=== PATIENT | female | born 1995 | race Caucasian/White ===

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

== ENCOUNTER 2017-10-15 10:01 | Emergency (ER) | payer BC ==
[2017-10-15 10:21] VITALS: BP 120/53
--- NOTE | 2017-10-15 11:37 | UC ---
UC General HPI - HPI Summary HPI Summary: SORE THROAT AND HEADACHE SINCE YESTERDAY - History of Current Complaint Chief Complaint: UCGeneralIllness Stated Complaint: SORE THROAT Time Seen by Provider: 10/15/17 11:30 Hx Obtained From: Patient Hx Last Menstrual Period: ~10/04/17 Onset/Duration: Gradual Onset Timing: Constant Pain Intensity: 7 Aggravating: SWALLOW Alleviating: NOTHING Associated Signs & Symptoms: Positive: Headache. Negative: Fever - Allergy/Home Medications Allergies/Adverse Reactions: Allergies Allergy/AdvReac Type Severity Reaction Status Date / Time latex Allergy Hives Verified 10/15/17 10:19 Penicillins Allergy Hives Verified 10/15/17 10:19 Home Medications: Home Medications Ibuprofen TAB* [Advil TAB*] 800 mg PO Q8H PRN 10/15/17 [History Confirmed ] PMH/Surg Hx/FS Hx/Imm Hx Previously Healthy: Yes - Surgical History Surgical History: Yes Surgery Procedure, Year, and Place: 2016 SX REPAIR LEFT FOOT/ANKLE HARDWARE - Family History Known Family History: Negative: Cardiac Disease, Respiratory Disease - Social History Occupation: Employed Part-time, Student Alcohol Use: None Substance Use Type: None Smoking Status (MU): Never Smoked Tobacco - Immunization History Hx Tetanus, Diphtheria Vaccination: Yes Vaccination Up to Date: Yes Review of Systems Constitutional: Negative Skin: Negative Eyes: Negative ENT: Sore Throat Respiratory: Negative Cardiovascular: Negative Gastrointestinal: Negative Genitourinary: Negative Motor: Negative Neurovascular: Negative Musculoskeletal: Negative Neurological: Headache Psychological: Negative Is Patient Immunocompromised?: No All Other Systems Reviewed And Are Negative: Yes Physical Exam Triage Information Reviewed: Yes Appearance: Well-Appearing Vital Signs: Initial Vital Signs Temp 99.6 F 10/15/17 10:17 Pulse 114 10/15/17 10:17 Resp 15 10/15/17 10:17 BP 120/53 10/15/17 10:17 Pulse Ox 98 10/15/17 10:17 Vital Signs Reviewed: Yes Eyes: Positive: Conjunctiva Inflamed ENT: Positive: Pharyngeal erythema, TMs normal, Uvula midline. Negative: Nasal congestion, Nasal drainage, Trismus, Muffled voice, Hoarse voice Neck: Positive: Supple, Nontender, Enlarged Nodes @ - pERITONSILAR Respiratory: Positive: Lungs clear, Normal breath sounds Cardiovascular: Positive: RRR, No Murmur, Other: - No tachycardia on exam Abdomen Description: Positive: Nontender, No Organomegaly, Soft Bowel Sounds: Positive: Present Musculoskeletal: Positive: ROM Intact Neurological: Positive: Alert Psychological: Positive: Age Appropriate Behavior Skin Exam: Normal Diagnostics - Laboratory Diagnostic Studies Completed/Ordered: rapid strep is + Course/Dx - Course Course Of Treatment: + rapid strep, non toxic, no concern for peritonsilar abscess. - Differential Dx - Multi-Symptom Provider Diagnoses: Strep throat Discharge - Sign-Out/Discharge Documenting (check all that apply): Patient Departure All imaging exams completed and their final reports reviewed: No Studies - Discharge Plan Condition: Stable Disposition: HOME Prescriptions: Azithromycin TAB* [Zithromax TAB (Z-RONNY) 250 mg #6 tabs] 500 mg PO DAILY 5 Days #10 tab Patient Education Materials: Strep Throat (DC) Forms: *Work Release Referrals: Meenakshi Ayala MD [Primary Care Provider] - 7 Days - Billing Disposition and Condition Condition: STABLE Disposition: Home
== END 2017-10-15 11:42 | disposition home or self-care (01) ==
LOC: UCCORT 10:01
DX: J02.0 Streptococcal pharyngitis (principal); Z88.0 Allergy status to penicillin
CPT/HCPCS: 87651; 99212; G0463

== ENCOUNTER 2018-02-21 08:41 | Emergency (ER) | payer BC ==
--- OUTSIDE RECORDS SUMMARY | 2018-02-21 08:53 | XMS REPORT | Continuity of Care Document ---
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 Payers Type Date Identification Numbers Payment Provider Subscriber Policy Number: [id number] [facility] PayID: [id number] [address] [address] [place] [address] Advance Directives Description No Information Available Problems Description No Information Family History Date Family Member(s) Problem(s) Comments General Hypertension Father Hypertension Mother Good Health : (age 47 Years) Paternal Grandfather due to Cancer, Liver Social History Type Date Description Comments Sex Unknown Education Highest level completed, Adolescent education Associates Degree from [employer] Currently working on at 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 Diet Healthy, Well Balanced ETOH Use Denies alcohol use Tobacco Use Start: Unknown Patient has never smoked Smoking Status Reviewed: 09/03/17 Patient has never smoked Legal Involvement Father is her legal biologic mother has no guardian legal rights. Allergies, Adverse Reactions, Alerts Date Description Reaction Status Severity Comments 08/20/2014 Penicillins Active Hives, SOB 10/21/2017 Latex Hives and itching Active Moderate Medications Medication Date Status Form Strength Qnty SIG Indications Ordering Provider Escitalopram 02/18/ Active Tablets 10mg 30tabs 1 by mouth R14.0 Kandice Ayala 2018 every day MD Meenakshi Ibuprofen 00/00/ Active Tablets 400mg 1 tab by Unknown 0000 mouth every 8 hour as needed pain or fever No Active 02/18/ Hx Unknown Medications 2017 - 2017 No Active 10/21/ Hx Unknown Medications 2017 - 2017 Cephalexin 10/21/ Hx Tablets 500mg 40tabs 1 by mouth Jamie 2018 - four times MD Meenakshi 02/17/ a day x 10 2017 days Dicyclomine HCL 09/03/ Hx Capsules 10mg 90caps by mouth R14.0 Jamie 2017 - three MD Meenakshi 09/10/ times a 2017 day as needed bloating Escitalopram 12/10/ Hx Tablets 20mg 30tabs 1 by mouth F41.0 Kandice Ayala 2016 - every day MD Meenakshi 2017 Escitalopram 03/12/ Hx Tablets 10mg 30tabs 1 by mouth F41.0 Kandice Ayala 2016 - every day MD Meenakshi 2016 Iron 08/20/ Hx Tablets 325(65Fe) one by Jamie 2014 - mg mouTH qod MD Meenakshi 2016 Medications Administered in Office Medication Date Status Form Strength Qnty SIG Indications Ordering Provider PPD Administered Injection Schedule, 8 Nurses Immunizations CPT Code Status Date Vaccine Reaction Lot # [id number] Given 10/07/2017 Tdap (Adacel) Ages 7 And Above [id number] Only 29786 Given 03/12/2016 Meningococcal B(Bexsero)protn Pt tolerated well [id number] otrMembran Vesicle Vccn 2 [place] [address] Given 08/12/2015 Menactra/Menveo Meningococcal [id number] Vaccine 26387 Given 08/12/2015 Meningococcal B(Bexsero)protn [id number] otrMembran Vesicle Vccn 2 [place] sche 175[address] Given 10/13/2013 HPV Vaccine (Gardasil) 3 Dose Schedule 94947 Given 03/15/2013 HPV Vaccine (Gardasil) 3 Dose Schedule 34344 Given 04/18/2012 HPV Vaccine (Gardasil) 3 Dose Schedule 56497 Given 10/17/2009 Menactra/Menveo Meningococcal Vaccine 76810 Given 10/17/2008 Hepatitis A, Ped/Adolescent 2 Dose Schedule 13217 Given 10/13/2007 Tdap (Adacel) Ages 7 And Above Only 92281 Given 10/05/2006 Hepatitis A, Ped/Adolescent 2 Dose Schedule 14952 Given 10/13/2002 MMR Virus Immunization U-Polio Given 10/13/2002 Polio (Non Billable) Unspecified U-Polio Given 10/13/2002 Polio (Non Billable) Unspecified U-DTaP Given 10/13/2002 DTaP (Non Billable) Unspecified [id number] U-Pneum Given 10/31/1999 Pneumococcal (Non Billable) Unspecified U-Pneum Given 09/11/1999 Pneumococcal (Non Billable) Unspecified U-Pneum Given 06/25/1999 Pneumococcal (Non Billable) Unspecified U-HIB Given 03/07/1999 Hib (Non Billable) Unspecified U-Polio Given 02/25/1999 Polio (Non Billable) Unspecified U-DTaP Given 02/25/1999 DTaP (Non Billable) Unspecified [id number] 03701 Given 02/25/1999 Hepatitis B Vac Ped/Adolescent 3 Dose Schedule U-DTaP Given 02/12/1999 DTaP (Non Billable) Unspecified [id number] 68463 Given 11/11/1998 MMR Virus Immunization U-Polio Given 02/09/1998 Polio (Non Billable) Unspecified U-HIB Given 02/09/1998 Hib (Non Billable) Unspecified U-DTaP Given 02/09/1998 DTaP (Non Billable) Unspecified [id number] 85058 Given 02/07/1998 Hepatitis B Vac Ped/Adolescent 3 Dose Schedule U-Polio Given 1997 Polio (Non Billable) Unspecified U-HIB Given 1997 Hib (Non Billable) Unspecified U-DTaP Given 1997 DTaP (Non Billable) Unspecified [id number] 12793 Given 1997 Hepatitis B Vac Ped/Adolescent 3 Dose Schedule Q2039 Refused 02/18/2018 Flu Vaccine NOS Q2039 Refused 09/03/2017 Flu Vaccine NOS Vital Signs Date Vital Result Comment 02/18/2018 2:50pm Weight 125.00 lb Heart Rate 68 /min BP Systolic 114 mmHg BP Diastolic 66 mmHg Respiratory Rate 16 /min Height 62.5 inches 5'2.50" O2 % BldC Oximetry 98 % Ra BMI (Body Mass Index) 22.5 kg/m2 10/21/2017 10:54am Body Temperature 98.4 F Weight 123.00 lb Weight Percentile 40th Heart Rate 88 /min BP Systolic 118 mmHg BP Diastolic 62 mmHg Respiratory Rate 18 /min O2 % BldC Oximetry 100 % 09/03/2017 1:54pm Weight 121.00 lb Weight Percentile 36th Heart Rate 76 /min BP Systolic 124 mmHg BP Diastolic 60 mmHg Respiratory Rate 18 /min Height 62.5 inches 5'2.50"09/03/17 Height Percentile 24 % BMI (Body Mass Index) 21.8 kg/m2 Body Mass Index Percentile 51 % 01/12/2017 8:47am Weight 130.00 lb Weight Percentile 56th Heart Rate 72 /min BP Systolic 110 mmHg BP Diastolic 70 mmHg Respiratory Rate 18 /min Height 62.5 inches 5'2.50"03/12/16 Height Percentile 24 % BMI (Body Mass Index) 23.4 kg/m2 Body Mass Index Percentile 69 % 2016 8:50am Weight 130.00 lb Weight Percentile 56th Heart Rate 72 /min BP Systolic 108 mmHg BP Diastolic 62 mmHg Respiratory Rate 18 /min Height 62.5 inches 5'2.50"03/12/16 Height Percentile 24 % BMI (Body Mass Index) 23.4 kg/m2 Body Mass Index Percentile 69 % 07/06/2016 2:47pm Weight 129.00 lb Weight Percentile 57th Heart Rate 68 /min BP Systolic 128 mmHg BP Diastolic 70 mmHg Respiratory Rate 18 /min Height 62.5 inches 5'2.50"03/12/16 Height Percentile 25 % BMI (Body Mass Index) 23.2 kg/m2 Body Mass Index Percentile 69 % 03/12/2016 11:31am Weight 130.00 lb Weight Percentile 60th Heart Rate 76 /min BP Systolic 102 mmHg BP Diastolic 70 mmHg Respiratory Rate 18 /min Height 62.5 inches 5'2.50"03/12/16 Height Percentile 25 % BMI (Body Mass Index) 23.4 kg/m2 Body Mass Index Percentile 71 % 08/12/2015 8:19am Weight 123.00 lb Weight Percentile 49th Heart Rate 68 /min BP Systolic 110 mmHg BP Diastolic 64 mmHg Respiratory Rate 18 /min Height 62.5 inches 5'2.50" Height Percentile 25 % BMI (Body Mass Index) 22.1 kg/m2 Body Mass Index Percentile 61 % 08/20/2014 3:42pm Weight 121.00 lb Weight Percentile 50th Heart Rate 76 /min BP Systolic 112 mmHg BP Diastolic 62 mmHg Respiratory Rate 16 /min Height 63 inches 5'3" Height Percentile 33 % 08/20/14 BMI (Body Mass Index) 21.4 kg/m2 Body Mass Index Percentile 58 % Results Test Date Facility Test Result H/L Range Note GC/Chlamydia By 09/03/2017 [facility] Chlamydia by Dna NEGATIVE Negative Dna Probe Probe GC by Dna Probe NEGATIVE Negative Laboratory test 06/24/2017 [facility] Urine HCG NEGATIVE (Neg) finding CMP, Comp Metabolic 03/12/2016 [facility] Glucose 86 mg/ dL N 74-106 1 Panel (315)- - BUN 13 mg/dL N 7-18 Creatinine 0.7 mg/dL N 0.6-1.3 Glom Filtration Rate, Estimate >60 mL/min N >60 If >60 mL/min N >60 2 BUN/Creat 18.5 ratio N Sodium 142 mmol/L N 136-145 Potassium 4.0 mmol/L N 3.5-5.1 Chloride 106 mmol/L N 98-107 Carbon Dioxide 29 mmol/L N 21-32 Anion Gap 7 mEq/L Low 8-16 Calcium 8.8 mg/dL N 8.5-10.1 Total Protein 7.9 g/dL N 6.4-8.2 Albumin 4.0 g/dL N 3.4-5.0 Globulin 3.9 g/dL N 1.9-4.3 Alb/Glob 1.0 ratio N Bilirubin,Total 0.5 mg/dL N 0.2-1.0 Sgot/Ast 18 U/L N 15-37 SGPT/Alt 24 U/L N 12-78 Alkaline Phosphatase 98 U/L N 45-117 Laboratory test 03/12/2016 [facility] Thyroid Stim 0.74 uIU/mL N 0.30-4.20 finding (315)- - Hormone CBC With Auto 03/12/2016 [facility] White Blood 5.6 K/uL N 3.1-10.7 Diff (315)- - Count Red Blood Count 4.92 M/uL N 3.90-5.40 Hemoglobin 13.5 gm/dL N 11.6-15.8 Hematocrit 40.1 % N 36.0-46.1 Mean Cell Volume 81.5 fl N 80.9-99.0 Mean Corpuscular HGB 27.4 pg N 25.9-32.7 Mean Corpuscular HGB Conc 33.7 g/dL N 30.8-34.3 Platelet Count 262 K/uL N 155-360 Red Cell Distri Width SD 39.8 fl N 3-47 Red Cell Distri Width %CV 13.7 % N 11.7-14.4 Mean Platelet Volume 10.3 fL N 8.9-12.4 Neut% 51.3 % N 28.0-68.0 Lymph % 33.9 % N 20.0-42.0 [place] % 8.8 % N 4.3-13.2 Eo% 5.8 % N 0.0-6.6 Bas% 0.2 % N 0.0-1.1 Neut# 2.85 K/uL N 1.8-7.0 Lymph # 1.88 K/uL N 1.0-4.0 [place] # 0.49 K/uL N 0.3-0.9 Eos # 0.32 K/uL N 0.0-0.5 Baso # 0.01 K/uL N 0.0-0.1 1 F41.0 2 Note: Persistent reduction for 3 months or more in an eGFR <60 mL/min/1.73 m2 defines CKD. Patients with eGFR values >/=60 mL/min/1.73 m2 may also have CKD if evidence of persistent proteinuria is present. The original MDRD equation for estimated GFR is not valid for patients less than 18 years of age. Additional information may be found at www.kdo[facility].org. Procedures Date Code Description Status 10/21/2017 46584 Measure Blood Oxygen Level Single Determination Completed 09/03/2017 14269 Visual Screening Test Completed 09/03/2017 50745 Brief Emotional/Behav Assessment W/ Scoring Doc Per Completed Standard Inst 09/03/2017 14793 Screening Hearing Test Completed 08/09/2015 70036 Visual Screening Test Completed 08/09/2015 61157 Screening Hearing Test Completed Encounters Type Date Location Provider Dx Diagnosis Office Visit 10/21/2017 [facility] Meenakshi Ayala MD J02.0 Streptococcal 10:30a pharyngitis Office Visit 10/07/2017 [facility] Schedule, Nurses Z23 Encounter for 3:30p immunization Z11.1 Encounter for screening for respiratory tuberculosis Office Visit 09/03/2017 2:00p [facility] Meenakshi Ayala MD Z00.00 Encntr for general adult medical exam w/o abnormal findings R14.0 Abdominal distension (gaseous) Z11.3 Encntr screen for infections w sexl mode of transmiss Z13.89 Encounter for screening for other disorder Office Visit 01/12/2017 8:45a [facility] Meenakshi Ayala MD F41.0 Panic disorder [episodic paroxysmal anxiety] J20.9 Acute bronchitis, unspecified Office Visit 2016 8:45a [facility] Meenakshi Ayala MD F41.0 Panic disorder [episodic paroxysmal anxiety] Office Visit 07/06/2016 2:30p [facility] Meenakshi Ayala MD F41.0 Panic disorder without agoraphobia Office Visit 03/12/2016 11:15a [facility] Meenakshi Ayala MD Z23 Encounter for immunization F41.0 Panic disorder without agoraphobia Office Visit 08/12/2015 8:15a [facility] Meenakshi Ayala MD Z00.129 Encntr for routine child health exam w/o abnormal findings 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 however, it appears that her symptoms worsened after stopping escitalopram. will check labs to evaluate this and will restart escitalopram to see if this helps .Follow up:labs today. 1 month follow-up escitalopram bcxmbI96.0 Panic disorder [episodic paroxysmal anxiety]New Labs:TSH, Ordered: Comments:weaned off escitalopram and doing well - she does not want medication for thisR10.9 Unspecified abdominal painNew Labs:CBC with Auto Diff- fcmg, Ordered: 02/18/18Hepatic Panel (LFT), Ordered: 02/18/18Basic (BMP), Ordered: 02/18/18Esr-FCMG, Ordered: 02/18/18CRP (C-Reactive), Ordered: Comments:check labs - do not feel that imaging is needed at this time.
[2018-02-21 08:54] VITALS: BP 110/70
--- NOTE | 2018-02-21 09:46 | UC ---
Throat Pain/Nasal Scott HPI - HPI Summary HPI Summary: Patient presents with 2 days of mild sore throat. Patient with a history of strep in September when to be checked. Patient has any other complaints. No fevers or chills. No ear pain. Patient does report after discussion slight nasal congestion postnasal drip. No fevers or chills. No analgesia taken. Patient eating and drinking normally. Patient without any other complaints. Patient's medications reported this visit. Patient reports she is not - History of Current Complaint Chief Complaint: UCGeneralIllness Stated Complaint: SORE THROAT Time Seen by Provider: 02/21/18 08:51 Hx Last Menstrual Period: 01/31/18 Pain Intensity: 6 Pain Scale Used: 0-10 Numeric - Allergies/Home Medications Allergies/Adverse Reactions: Allergies Allergy/AdvReac Type Severity Reaction Status Date / Time latex Allergy Hives Verified 02/21/18 08:52 Penicillins Allergy Hives Verified 02/21/18 08:52 Home Medications: Home Medications Escitalopram Oxalate [Lexapro 10 mg] 10 mg PO DAILY 02/21/18 [History Confirmed 02/21/18] PMH/Surg Hx/FS Hx/Imm Hx Previously Healthy: Yes - strep 10/09 - Surgical History Surgical History: Yes Surgery Procedure, Year, and Place: 2016 SX REPAIR LEFT FOOT/ANKLE HARDWARE - Family History Known Family History: Positive: Non-Contributory Negative: Cardiac Disease, Respiratory Disease - Social History Lives: With Family Alcohol Use: Occasionally Substance Use Type: None Smoking Status (MU): Never Smoked Tobacco - Immunization History Hx Tetanus, Diphtheria Vaccination: Yes Vaccination Up to Date: Yes Review of Systems All Other Systems Reviewed And Are Negative: Yes Constitutional: Positive: Negative ENT: Positive: Sore Throat Physical Exam - Summary Physical Exam Summary: Vital Signs Reviewed: Yes A+Ox3, no distress Eyes: Conjunctiva Clear, FREDDY. EOM intact and full ENT: Hearing grossly normal TM x 2 clear, turbinates inflammed. mild PND mmoist, uvula midline, scant exudate left tonsil, no erythema Neck: Positive: Supple Respiratory: Positive: No respiratory distress, No accessory muscle use + CTA throughout no w/r Cardiovascular: RRR nl s1, s2 no m/r CBT <2 sec abd soft + BS nt/nd no guarding, no distension Musculoskeletal Exam: CHOI x 4 without difficulty Strength Intact, ROM Intact Neurological: Positive: Alert, + sensation throughout Psychological: Positive: Normal Response To Family Skin: Positive: no rash, no ecchymosis Triage Information Reviewed: Yes Vital Signs: Initial Vital Signs Temp 97.8 F 02/21/18 08:51 Pulse 68 02/21/18 08:51 Resp 14 02/21/18 08:51 BP 110/70 02/21/18 08:51 Pulse Ox 100 02/21/18 08:51 Throat Pain/Nasal Course/Dx - Course Course Of Treatment: Patient presents with 24 hours a sore throat. Patient states she had strep the son was concerned it was back. No fevers or chills. No difficulty swallowing. Patient with some mild sinus congestion and body aches. Patient's rapid strep is negative. Patient does have scant exudate on her left tonsil so we will send culture. Recommend supportive measures. Motrin /Tylenol. We'll give Flonase for postnasal drip. Hydrate. Decongestant humidify. Return precautions. Patient comfortable in agreement with plan. - Differential Dx/Diagnosis Provider Diagnosis: Pharyngitis Discharge - Sign-Out/Discharge Documenting (check all that apply): Patient Departure All imaging exams completed and their final reports reviewed: No Studies - Discharge Plan Condition: Stable Disposition: HOME Prescriptions: Fluticasone NASAL SPRAY 50MCG* [Flonase NASAL SPRAY 50MCG*] 2 spray BOTH NARES DAILY #1 btl Patient Education Materials: Pharyngitis (ED) Referrals: Meenakshi Ayala MD [Primary Care Provider] - Additional Instructions: - Okay to alternate ibuprofen (Advil, Motrin) 600mh and Tylenol 1000mg every 3 hours for pain. Take with food. Do NOT take for more than 4-5 days - Okay to gargle and spit warm salt water every 4 hours as needed for pain - Stay well hydrated - frequent sips of cold fluids will be soothing to your throat (popsicles, jello, ice cream, ice water). Avoid excess caffeine until your symptoms have resolved. -Throat infections are spread by oral secretions - do not share eating or drinking utensils until you symptoms are resolved. Clean items that may get your secretions such as cell phones, ipads, computer mouse, television remotes. Once you start to feel better, change your toothbrush and your pillowcase. - use inhaler - 2puffs every 4 hours today, then every 4 hours as needed. - use nasal spray as prescribed - your throat sample has been sent for additional testing. If you need an antibiotic, you will receive a call from a care master steam yacht. This may take 2-3 days - humidify the air in the room where you sleep - boil water, run a hot steam shower, vaporizer, cups of water by heat register - Okay to take over the counter cough and decongestant medication - Contact your doctor to arrange a follow-up appointment as needed - Billing Disposition and Condition Condition: STABLE Disposition: Home
== END 2018-02-21 09:40 | disposition home or self-care (01) ==
LOC: UCCORT 08:41
DX: J02.9 Acute pharyngitis, unspecified (principal); Z88.0 Allergy status to penicillin
CPT/HCPCS: 87070; 87651; 99212; G0463

== ENCOUNTER 2018-09-19 19:09 | Emergency (ER) | payer BC ==
[2018-09-19 19:51] VITALS: BP 107/62
--- NOTE | 2018-09-19 20:18 | ED ---
GI/ HPI - HPI Summary HPI Summary: 22 yr old with chief complaint of spotting. Onset past couple days. She got her period September 09 through , had intercourse , condom broke and she took plan B. She has no pain now. She is here for test. No prior pregnancies. No other complaints. - History of Current Complaint Chief Complaint: [facility] Time Seen by Provider: 09/19/18 19:58 Stated Complaint: PERSONAL Hx Last Menstrual Period: 09/09/18 Pain Intensity: 0 - Allergy/Home Medications Allergies/Adverse Reactions: Allergies Allergy/AdvReac Type Severity Reaction Status Date / Time latex Allergy Hives Verified 09/19/18 19:51 Penicillins Allergy Hives Verified 09/19/18 19:51 Home Medications: Home Medications NK [No Home Medications Reported] 09/19/18 [History Confirmed 09/19/18] PMH/Surg Hx/FS Hx/Imm Hx Endocrine/Hematology History: Denies: Hx Diabetes Cardiovascular History: Denies: Hx Hypertension, Hx Pacemaker/ICD History: Denies: Hx Dialysis, Hx Renal Disease Sensory History: Denies: Hx Hearing Aid Psychiatric History: Denies: Hx Panic Disorder - Surgical History Surgery Procedure, Year, and Place: 2017 SX REPAIR LEFT FOOT/ANKLE HARDWARE Infectious Disease History: No Infectious Disease History: Denies: Traveled Outside the [place] in Last 30 Days - Family History Known Family History: Positive: Non-Contributory Negative: Cardiac Disease, Respiratory Disease - Social History Occupation: Employed Part-time Alcohol Use: Occasionally Substance Use Type: Reports: None Smoking Status (MU): Never Smoked Tobacco Review of Systems Constitutional: Negative Positive: other - bleeding All Other Systems Reviewed And Are Negative: Yes Physical Exam Triage Information Reviewed: Yes Vital Signs On Initial Exam: Initial Vitals Temp Pulse Resp BP Pulse Ox 98.6 F 74 16 107/62 100 09/19/18 19:45 09/19/18 19:45 09/19/18 19:45 09/19/18 19:45 09/19/18 19:45 Vital Signs Reviewed: Yes Appearance: Positive: Well-Appearing, No Pain Distress Skin: Positive: Warm, Skin Color Reflects Adequate Perfusion Head/Face: Positive: Normal Head/Face Inspection Eyes: Positive: EOMI, FREDDY ENT: Positive: Normal ENT inspection Neck: Positive: Nontender Respiratory/Lung Sounds: Positive: Clear to Auscultation, Breath Sounds Present Cardiovascular: Positive: RRR. Negative: Murmur Abdomen Description: Negative: Distended Musculoskeletal: Negative: Edema Left, Edema Right Neurological: Positive: Sensory/Motor Intact, Alert, Oriented to Person Place, Time, CN Intact II-III Psychiatric: Positive: Normal Diagnostics - Vital Signs Vital Signs Temp Pulse Resp BP Pulse Ox 09/19/18 19:45 98.6 F 74 16 107/62 100 - Laboratory Lab Statement: Any lab studies that have been ordered have been reviewed, and results considered in the medical decision making process. GIGU Course/Dx - Course Course Of Treatment: HCG neg. DW patient. She is comfortable at this time. 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 She was advised to also monitor tests. Possible causes of the spotting are side effect of plan B. and early implantation bleeding. She know she needs to go to the ER for any further bleeding and if she has pain. She knows to follow up with her BUSINESS PROPOSAL REP doctor whom she says she has. - Diagnoses Provider Diagnoses: Vaginal bleeding, abnormal Discharge - Sign-Out/Discharge Documenting (check all that apply): Patient Departure All imaging exams completed and their final reports reviewed: No Studies - Discharge Plan Condition: Good Disposition: HOME Patient Education Materials: Dysfunctional Uterine Bleeding (ED) Referrals: Meenakshi Ayala MD [Primary Care Provider] - 2 Days Additional Instructions: Be Sure to call your doctor for follow up, and further monitor you HCG test over the next couple of weeks. GO to the ER for any heavy bleeding or pain. - Billing Disposition and Condition Condition: GOOD Disposition: Home
== END 2018-09-19 20:31 | disposition home or self-care (01) ==
LOC: UCCORT 19:09
DX: N93.9 Abnormal uterine and vaginal bleeding, unspecified (principal)
CPT/HCPCS: 84702; 99211; G0463

== ENCOUNTER 2019-02-12 08:48 | Emergency (ER) | payer BC ==
--- OUTSIDE RECORDS SUMMARY | 2019-02-12 09:29 | XMS REPORT | Continuity of Care Document ---
:1995 External Reference #:[id number] Author Name Meenakshi Ayala MD Address [address] [place] [id number] Care Team Providers Name Role Phone Pascale Dillon,PHD - Psychologist Care Team Information Oil [employer] Principal [phone] Rosa Uribe MD Care Team Information [employer] Principal [phone] Problems Active Problems Provider Date Generalized anxiety disorder Meenakshi Ayala MD Onset: 12/27/2018 Moderate recurrent major depression Meenakshi Ayala MD Onset: 12/27/2018 Chronic idiopathic constipation Meenakshi Ayala MD Onset: 02/06/2019 Social History Type Date Description Comments Sex Unknown ETOH Use 12/27/2018 Currently consumes alcohol 4-5 drinks 2-3 times per week Tobacco Use Start: Unknown Patient has never smoked Smoking Status Reviewed: 12/27/18 Patient has never smoked Allergies, Adverse Reactions, Alerts Active Allergies Reaction Severity Comments Date Penicillins Hives, SOB 08/20/2014 Latex Hives and itching Moderate 10/21/2017 Medications Active Medications SIG Qnty Indications Ordering Provider Date Fluoxetine HCL 1 by mouth 30caps F33.1 Meenakshi Ayala MD 02/06/2019 20mg every day Capsules F41.1 Ibuprofen 1 tab by mouth every 8 hour as Unknown 400mg Tablets needed pain or fever Milk Of Magnesia 30 milliliters by mouth today Unknown 7.75% Suspension for constipation History Medications Fluoxetine HCL 1 by mouth 90caps F33.1 Meenakshi Ayala MD 12/27/2018 - 10mg every day 02/06/2019 Capsules F41.1 Medications Administered in Office Medication SIG Qnty Indications Ordering Provider Date PPD Injection Schedule, Nurses 10/05/2017 Immunizations CPT Code Status Date Vaccine Reaction Lot # [id number] Given 10/07/2017 Tdap (Adacel) Ages 7 And Above [id number] Only 58581 Given 03/12/2016 Meningococcal B(Bexsero)protn Pt tolerated well [id number] otrMembran Vesicle Vccn 2 [place] [address] Given 08/12/2015 Menactra/Menveo Meningococcal [id number] Vaccine 37088 Given 08/12/2015 Meningococcal B(Bexsero)protn [id number] otrMembran Vesicle Vccn 2 [place] [address] Given 10/13/2013 HPV Vaccine (Gardasil) 3 Dose Schedule 69346 Given 03/15/2013 HPV Vaccine (Gardasil) 3 Dose Schedule 80510 Given 04/18/2012 HPV Vaccine (Gardasil) 3 Dose Schedule 67984 Given 10/17/2009 Menactra/Menveo Meningococcal Vaccine 98807 Given 10/17/2008 Hepatitis A, Ped/Adolescent 2 Dose Schedule 34440 Given 10/13/2007 Tdap (Adacel) Ages 7 And Above Only 02176 Given 10/05/2006 Hepatitis A, Ped/Adolescent 2 Dose Schedule 01233 Given 10/13/2002 MMR Virus Immunization U-Polio Given 10/13/2002 Polio (Non Billable) Unspecified U-Polio Given 10/13/2002 Polio (Non Billable) Unspecified U-DTaP Given 10/13/2002 DTaP (Non Billable) Unspecified [id number] U-Pneum Given 10/31/1999 Pneumococcal (Non Billable) Unspecified U-Pneum Given 09/11/1999 Pneumococcal (Non Billable) Unspecified U-Pneum Given 06/25/1999 Pneumococcal (Non Billable) Unspecified U-HIB Given 03/07/1999 Hib (Non Billable) Unspecified U-Polio Given 02/25/1999 Polio (Non Billable) Unspecified U-DTaP Given 02/25/1999 DTaP (Non Billable) Unspecified [id number] 58158 Given 02/25/1999 Hepatitis B Vac Ped/Adolescent 3 Dose Schedule U-DTaP Given 02/12/1999 DTaP (Non Billable) Unspecified [id number] 20803 Given 11/11/1998 MMR Virus Immunization U-Polio Given 02/09/1998 Polio (Non Billable) Unspecified U-HIB Given 02/09/1998 Hib (Non Billable) Unspecified U-DTaP Given 02/09/1998 DTaP (Non Billable) Unspecified [id number] 42049 Given 02/07/1998 Hepatitis B Vac Ped/Adolescent 3 Dose Schedule U-Polio Given 1997 Polio (Non Billable) Unspecified U-HIB Given 1997 Hib (Non Billable) Unspecified U-DTaP Given 1997 DTaP (Non Billable) Unspecified [id number] 64380 Given 1997 Hepatitis B Vac Ped/Adolescent 3 Dose Schedule [id number] Refused 02/18/2018 Flu Vaccine NOS [id number] Refused 09/03/2017 Flu Vaccine NOS Vital Signs Date Vital Result Comment 02/06/2019 4:15pm Weight 113.00 lb Heart Rate 82 /min BP Systolic 116 mmHg BP Diastolic 72 mmHg Respiratory Rate 18 /min Height 62.5 inches 5'2.50" O2 % BldC Oximetry 98 % Ra BMI (Body Mass Index) 20.3 kg/m2 12/27/2018 1:41pm Weight 114.00 lb Heart Rate 99 /min BP Systolic 110 mmHg BP Diastolic 72 mmHg Respiratory Rate 18 /min Height 62.5 inches 5'2.50" O2 % BldC Oximetry 98 % Ra BMI (Body Mass Index) 20.5 kg/m2 Results Test Acquired Date Facility Test Result H/L Range Note Chlamydia & GC, 12/27/2018 [facility] Chlamydia NOT DETECTED Not Detected Dna-[facility] GC NOT DETECTED Not Detected Laboratory test finding 12/27/2018 [facility] TSH 0.58 uIU/mL 0.35-4.94 1 CBC with Auto Diff-fcmg 12/27/2018 [facility] WBC 6.0 K/uL 4.1-11.0 RBC 5.13 M/uL 4.00-5.40 Hemoglobin 14.7 gm/dL 12.0-16.0 Hematocrit 43.2 % 36.0-47.0 MCV 84.2 fL 80.0-97.0 MCH 28.8 pg 27.0-32.0 MCHC 34.2 g/dL 32.0-36.0 RDW 14.3 % 11.5-14.5 PLT Count 295 K/ul 140-400 MPV 8.3 FL 7.1-10.7 Neutrophil 52.2 % 35.0-75.0 Lymphocyte 35.5 % 16.0-52.0 Monocyte 7.3 % 2.0-10.0 Eosinophil 4.7 % 0.0-5.0 Basophil 0.3 % 0.0-4.0 Abs Neutrophils 3.1 K/uL 2.1-8.0 Abs Lymphocytes 2.1 K/uL 0.8-5.5 Abs Monocytes 0.4 K/uL 0.1-1.0 Abs Eosinophils 0.3 K/uL 0.0-0.5 Abs Basophils 0.0 K/uL 0.0-0.3 Hepatic Panel (LFT) 12/27/2018 [facility] Total Protein 7.0 g/dL 6.0-8.0 Albumin 4.6 g/dL 3.6-4.9 Total Bilirubin 0.7 mg/dL 0.1-1.3 Direct Bilirubin 0.1 mg/dL 0.0-0.4 Alkaline Phosphatase 74 U/L 24-140 Alt 10 U/L 3-42 Ast 19 U/L 8-42 Basic (BMP) 12/27/2018 [facility] Sodium 139 mmol/L 135-146 2 Potassium 3.7 mmol/L 3.5-5.2 Chloride# 103 mmol/L 97-110 3 Carbon Dioxide 28 mmol/L 24-34 Glucose 111 mg/dL High 70-105 BUN 10 mg/dL 6-26 Creatinine 0.7 mg/dL 0.5-1.4 Calcium 9.5 mg/dL 8.5-10.5 4 Female Egfr 120 >60 5 Male Egfr 133 >60 6 Anion Gap 8 mmol/L 5-15 7 Laboratory test finding 12/27/2018 [facility] 6 mm/hr 0-20 CRP (C-Reactive) inflammation 0.19 mg/dL 0.00-0.75 Laboratory test 09/19/2018 [facility] , Negative Negative 8 finding Urine 1 today 2 Updated reference range on new analyzer 3 Updated reference range on new analyzer 4 Updated reference range 06-22-2018 5 Concerning GFR Guidelines for Americans: Normal function or mild renal disease, if clinically at risk: >/= 60 mL/min Moderately decreased: 30-59 Severely decreased: 15-29 Renal failure: <15 There is reduced accuracy above 60ml/min/1.73 m squared, but the numeric value may be clinically useful in the near 60 range 6 Concerning GFR Guidelines: Normal function or mild renal disease, if clinically at risk: >/= 60 mL/min Moderately decreased: 30-59 Severely decreased: 15-29 Renal failure: <15 There is reduced accuracy above 60ml/min/1.73 m squared, but the numeric value may be clinically useful in the near 60 range Glomerular Filtration Rate (GFR) is estimated based on the CKD-EPI equation, which assumes a steady state for creatinine as recommended by the National Kidney Disease Education Program in conjunction with the National Institutes of Health and the National Kidney Foundation. Clinical conditions in which it may be necessary to measure GFR by using clearance methods include extremes of age and body size, severe malnutrition or obesity, diseases of skeletal muscle, paraplegia or quadriplegia, vegetarian diet, rapidly changing kidney function, and calculation of the dose of potentially toxic drugs that are excreted by the kidneys. 7 Updated Reference Range 8 Mill Attendant: [id number] Test Disclaimer: Positive bacteria, red blood cells, white blood cells, early , low specific gravity, and other factors may cause false positive or negative results. It is recommended to retest unexpected and borderline results with a serum test when applicable. If is still suspected, please repeat test after 48 to 72 hours. Procedures Date Code Description Status 02/06/2019 51864 Brief Emotional/Behav Assessment W/ Scoring Doc Per Completed Standard [facility] 12/27/2018 03789 Brief Emotional/Behav Assessment W/ Scoring Doc Per Completed [facility] 12/27/2018 57577 Brief Emotional/Behav Assessment W/ Scoring Doc Per Completed Standard [facility] Medical Devices Description No Information Available Encounters Type Date Location Provider Dx Diagnosis Office Visit 12/27/2018 [facility] Meenakshi Ayala MD Z00.00 Encntr for general 1:30p adult medical exam w/o abnormal findings R14.0 Abdominal distension (gaseous) F41.1 Generalized anxiety disorder F33.1 Major depressive disorder, recurrent, moderate Assessments Date Code Description Provider 02/06/2019 F41.1 Generalized anxiety disorder Meenakshi Ayala MD 02/06/2019 F33.1 Major depressive disorder, recurrent, moderate Meenakshi Ayala MD 02/06/2019 K59.04 Chronic idiopathic constipation Meenakshi Ayala MD 12/27/2018 F41.0 Panic disorder [episodic paroxysmal anxiety] Meenakshi Ayala MD 12/27/2018 R10.9 Unspecified abdominal pain [facility] 12/27/2018 Z00.00 Encounter for general adult medical Meenakshi Ayala MD examination without abnormal findings 12/27/2018 R10.9 Unspecified abdominal pain Meenakshi Ayala MD 12/27/2018 R14.0 Abdominal distension (gaseous) Meenakshi Ayala MD 12/27/2018 F41.1 Generalized anxiety disorder Meenakshi Ayala MD 12/27/2018 F33.1 Major depressive disorder, recurrent, moderate Meenakshi Ayala MD 12/27/2018 F41.0 Panic disorder [episodic paroxysmal anxiety] Schedule, Laboratory 12/27/2018 R10.9 Unspecified abdominal pain Schedule, Laboratory 12/27/2018 F41.0 Panic disorder [episodic paroxysmal anxiety] [facility] 12/27/2018 R10.9 Unspecified abdominal pain [facility] 12/27/2018 Z00.00 Encntr for general adult medical exam w/o [facility] abnormal findings Plan of Treatment Future Appointment(s):03/21/2019 4:00 pm - Meenakshi Ayala MD at [facility]02/06/2019 - Meenakshi Ayala MDF41.1 Generalized anxiety disorderNew Medication:Fluoxetine HCL 20 mg - 1 by mouth every dayComments:improved but with much stress over finals week. We will increase the dose of fluoxetine 20 mg daily. DEONTE = 12 - shows moderate anxietyFollow up:3-4 weeks follow up on fluoxetine dose increase.F33.1 Major depressive disorder, recurrent, moderateNew Medication: Fluoxetine HCL 20 mg - 1 by mouth every dayComments:We will increase the dose of fluoxetine 20 mg as directed by physician. PHQ9 = 22 = moderate to severe [id number] Chronic idiopathic constipationComments:reviewed recent bloodwork, which is not consistent with inflammatory bowel disease. The patient will be referred to Dr. Uribe to evaluation and treatment constipation present over 1 year.Referral:Rosa Uribe MD, Functional Status Description No Information Available Mental Status Description No Information Available Referrals Refer to Reason for Referral Status Appt Date Rosa Uribe MD evaluation and treatment constipation present Created over 1 year perfers late afternoon [address] [place] [id number] [phone]
--- OUTSIDE RECORDS SUMMARY | 2019-02-12 09:29 | XMS REPORT | Continuity of Care Document ---
:1995 External Reference #:[id number] Author Name Meenakshi Ayala MD Address [address] [place] [id number] Care Team Providers Name Role Phone Pascale Dillon,PHD - Psychologist Care Team Information Secured Entrance Monitor [phone] Problems Active Problems Provider Date Moderate recurrent major depression Meenakshi Ayala MD Onset: 12/27/2018 Generalized anxiety disorder Meenakshi Ayala MD Onset: 12/27/2018 Social History Type Date Description Comments Sex [...] by mouth 30caps F33.1 Meenakshi Ayala MD 12/27/2018 10mg every day Capsules F41.1 Ibuprofen 1 tab by mouth every 8 hour Unknown 400mg Tablets as needed pain or fever Medications Administered in Office Medication SIG Qnty Indications Ordering Provider Date PPD Injection Schedule, Nurses 10/05/2017 Immunizations CPT Code Status Date Vaccine Reaction Lot # [id number] Given 10/07/2017 Tdap (Adacel) Ages 7 And Above [id number] Only 89936 Given 03/12/2016 Meningococcal B(Bexsero)protn Pt tolerated well [id number] otrMembran Vesicle Vccn 2 [place] [address] Given 08/12/2015 Menactra/Menveo Meningococcal [id number] Vaccine 88874 Given 08/12/2015 Meningococcal B(Bexsero)protn [id number] otrMembran Vesicle Vccn 2 dose sche 14514 Given 10/13/2013 HPV Vaccine (Gardasil) 3 Dose Schedule 87231 Given 03/15/2013 HPV Vaccine (Gardasil) 3 Dose Schedule 29150 Given 04/18/2012 HPV Vaccine (Gardasil) 3 Dose Schedule 29565 Given 10/17/2009 Menactra/Menveo Meningococcal Vaccine 69156 Given 10/17/2008 Hepatitis A, Ped/Adolescent 2 Dose Schedule 60419 Given 10/13/2007 Tdap (Adacel) Ages 7 And Above Only 62888 Given 10/05/2006 Hepatitis A, Ped/Adolescent 2 Dose Schedule 65572 Given 10/13/2002 MMR Virus Immunization U-Polio Given 10/13/2002 Polio (Non Billable) Unspecified U-Polio Given 10/13/2002 Polio (Non Billable) Unspecified U-DTaP Given 10/13/2002 DTaP (Non Billable) Unspecified [id number] U-Pneum Given 10/31/1999 Pneumococcal (Non Billable) Unspecified U-Pneum Given 09/11/1999 Pneumococcal (Non Billable) Unspecified U-Pneum Given 06/25/1999 Pneumococcal (Non Billable) Unspecified U-HIB Given 03/07/1999 Hib (Non Billable) Unspecified U-Polio Given 02/25/1999 Polio (Non Billable) Unspecified U-DTaP Given 02/25/1999 DTaP (Non Billable) Unspecified [id number] 17620 Given 02/25/1999 Hepatitis B Vac Ped/Adolescent 3 Dose Schedule U-DTaP Given 02/12/1999 DTaP (Non Billable) Unspecified [id number] 64033 Given 11/11/1998 MMR Virus Immunization U-Polio Given 02/09/1998 Polio (Non Billable) Unspecified U-HIB Given 02/09/1998 Hib (Non Billable) Unspecified U-DTaP Given 02/09/1998 DTaP (Non Billable) Unspecified [id number] 92961 Given 02/07/1998 Hepatitis B Vac Ped/Adolescent 3 Dose Schedule U-Polio Given 1997 Polio (Non Billable) Unspecified U-HIB Given 1997 Hib (Non Billable) Unspecified U-DTaP Given 1997 DTaP (Non Billable) Unspecified [id number] 34799 Given 1997 Hepatitis B Vac Ped/Adolescent 3 Dose Schedule Q2039 Refused 02/18/2018 Flu Vaccine NOS Q2039 Refused 09/03/2017 Flu Vaccine NOS Vital Signs Date Vital Result Comment 12/27/2018 1:41pm Weight 114.00 lb Heart Rate 99 /min BP Systolic 110 mmHg BP Diastolic 72 mmHg Respiratory Rate 18 /min Height 62.5 inches 5'2.50" O2 % BldC Oximetry 98 % Ra BMI (Body Mass Index) 20.5 kg/m2 03/21/2018 8:54am Weight 119.00 lb Heart Rate 72 /min BP Systolic 116 mmHg BP Diastolic 74 mmHg Respiratory Rate 16 /min Height 62.5 inches 5'2.50" BMI (Body Mass Index) 21.4 kg/m2 Results Test Acquired Date Facility Test Result H/L Range Note Laboratory [facility]> Laboratory test finding 12/27/2018 [facility] <pending> CRP (C-Reactive) <pending> Laboratory test 09/19/2018 [facility] , Negative Negative 1 finding Urine 1 Applications Administrator: [id number] Test Disclaimer: Positive bacteria, red blood cells, white blood cells, early , low specific gravity, and other factors may cause false positive or negative results. It is recommended to retest unexpected and borderline results with a serum test when applicable. If is still suspected, please repeat test after 48 to 72 hours. Procedures Date Code Description Status 12/27/2018 49434 Brief Emotional/Behav Assessment W/ Scoring Doc Per Completed Standard [facility] 12/27/2018 03110 Brief Emotional/Behav Assessment W/ Scoring Doc Per Completed Standard [facility] Medical Devices Description No Information Available Encounters Description No Information Available Assessments Date Code Description Provider 12/27/2018 Z00.00 Encounter for general adult medical Meenakshi Ayala MD examination without abnormal findings 12/27/2018 R14.0 Abdominal distension (gaseous) Meenakshi Ayala MD 12/27/2018 F41.1 Generalized anxiety disorder Meenakshi Ayala MD 12/27/2018 F33.1 Major depressive disorder, recurrent, moderate Meenakshi Ayala MD 12/27/2018 F41.0 Panic disorder [episodic paroxysmal anxiety] Schedule, Laboratory 12/27/2018 R10.9 Unspecified abdominal pain Schedule, Laboratory Plan of Treatment Future Appointment(s):01/24/2019 8:00 am - Meenakshi Ayala MD at [facility] Functional Status Description No Information Available Mental Status Description No Information Available Referrals Description No Information Available
[2019-02-12 09:47] VITALS: BP 103/66
--- NOTE | 2019-02-12 09:58 | UC ---
FLU HPI - HPI Summary HPI Summary: 23-year-old female presents with complaints of nasal congestion, postnasal drip , sore throat, and a nonproductive cough for over a week. States over the past 2-3 days symptoms appear to be getting worse. Reports low-grade fevers max temperature of 100 F. Denies ear pain, dysphagia, chest pain, shortness of breath, abdominal pain, nausea, or vomiting. - History of Current Complaint Chief Complaint: UCGeneralIllness Stated Complaint: CONGESTION,COUGH Time Seen by Provider: 02/12/19 09:51 Hx Obtained From: Patient Hx Last Menstrual Period: 02/05/19 Pain Intensity: 0 - Allergy/Home Medications Allergies/Adverse Reactions: Allergies Allergy/AdvReac Type Severity Reaction Status Date / Time latex Allergy Hives Verified 02/12/19 09:47 Penicillins Allergy Hives Verified 02/12/19 09:47 Home Medications: Home Medications FLUoxetine CAP* [PROzac CAP*] 20 mg PO BEDTIME 02/12/19 [History Confirmed 02/12] PMH/Surg Hx/FS Hx/Imm Hx Previously Healthy: Yes - Denies significant PMH Psychological History: Depression - Surgical History Surgical History: Yes Surgery Procedure, Year, and Place: 2017 SX REPAIR LEFT FOOT/ANKLE HARDWARE - Family History Known Family History: Positive: Non-Contributory - Social History Occupation: Student Lives: Dormitory/Roommates Alcohol Use: Occasionally Substance Use Type: None Smoking Status (MU): Never Smoked Tobacco - Immunization History Hx Tetanus, Diphtheria Vaccination: Yes Vaccination Up to Date: Yes Review of Systems All Other Systems Reviewed And Are Negative: Yes Constitutional: Positive: Fever. Negative: Chills Skin: Negative: Rash Eyes: Negative: Drainage, Eye Redness ENT: Positive: Sore Throat, Nasal Discharge, Sinus Congestion. Negative: Ear Ache, Sinus Pain/Tenderness Respiratory: Positive: Cough. Negative: Shortness Of Breath Cardiovascular: Negative: Palpitations, Chest Pain Gastrointestinal: Negative: Abdominal Pain, Vomiting, Nausea Genitourinary: Positive: Negative Musculoskeletal: Positive: Negative Neurological: Positive: Negative Is Patient Immunocompromised?: No Physical Exam - Summary Physical Exam Summary: GENERAL APPEARANCE: Well developed, well nourished, alert and cooperative, and appears to be in no acute distress. EYES: Conjunctiva clear. No drainage. EARS: External auditory canals and tympanic membranes clear, hearing grossly intact. NOSE: Moderate nasal congestion. No nasal discharge. THROAT: Pharyngeal erythema with post-nasal drip. No tonsilar inflammation, swelling, exudate, or lesions. Uvula midline. NECK: Neck supple, non-tender without lymphadenopathy. CARDIAC: Normal S1 and S2. No S3, S4 or murmurs. Rhythm is regular. There is no peripheral edema, cyanosis or pallor. Extremities are warm and well perfused. Capillary refill is less than 2 seconds. Peripheral pulses intact. LUNGS: Clear to auscultation without rales, rhonchi, wheezing or diminished breath sounds. Dry, non-productive cough. ABDOMEN: Positive bowel sounds. Soft, nondistended, nontender. No guarding or rebound. No masses or hepatosplenomegally. MUSKULOSKELETAL: ROM intact to all extremities. No joint erythema or tenderness. Normal muscular development. Normal gait. SKIN: Skin normal color, texture and turgor with no lesions or eruptions. Triage Information Reviewed: Yes Vital Signs: Initial Vital Signs Temp 97.4 F 02/12/19 09:43 Pulse 78 02/12/19 09:43 Resp 18 02/12/19 09:43 BP 103/66 02/12/19 09:43 Pulse Ox 100 02/12/19 09:43 Vital Signs Reviewed: Yes Flu Course/Dx - Course Course Of Treatment: 23-year-old female presents with complaints of nasal congestion, postnasal drip , sore throat, and a nonproductive cough for over a week. States over the past 2-3 days symptoms appear to be getting worse. Reports low-grade fevers max temperature of 100 F. Denies ear pain, dysphagia, chest pain, shortness of breath, abdominal pain, nausea, or vomiting. Afebrile. Vital signs stable. Patient had moderate nasal congestion, pharyngeal erythema with postnasal drip, no tonsillar swelling or exudate, no cervical lymphadenopathy, clear bilateral breath sounds, a dry nonproductive cough, and otherwise unremarkable exam. Discussed with the patient that symptoms may likely represent a viral illness although considering the duration and worsening of the patient's symptoms cannot rule out a secondary bacterial infection. We reviewed the risks and benefit of treating with an antibiotic versus symptomatic treatment the patient is electing for the former. Will treat her for an upper respiratory infection with a course of azithromycin as well as symptomatic treatment. She is to follow-up with her primary care provider in 3-5 days if symptoms are not improving. Anticipatory guidance warning symptoms were reviewed with the patient. Verbalizes understanding and agrees with plan of care. - Differential Dx/Diagnosis Differential Diagnosis/HQI/PQRI: Bronchitis, Influenza, Pneumonia, Upper Respiratory Infection Provider Diagnosis: Upper respiratory infection with cough and congestion Discharge ED - Sign-Out/Discharge Documenting (check all that apply): Patient Departure All imaging exams completed and their final reports reviewed: No Studies - Discharge Plan Condition: Stable Disposition: HOME Prescriptions: Azithromyxin FAROOQ (NF) [Z-Farooq (Zithromax) 250 mg tabs #6] 2 tab PO .TODAY, THEN 1 DAILY #6 tab Benzonatate CAP* [Tessalon 100 MG CAP*] 100 mg PO TID PRN #21 cap PRN Reason: Cough Fluticasone NASAL SPRAY 50MCG* [Flonase NASAL SPRAY 50MCG*] 2 spray BOTH NARES DAILY #1 btl Patient Education Materials: Upper Respiratory Infection (ED) Referrals: Meenakshi Ayala MD [Primary Care Provider] - 3 Days (Follow up in 3-5 days if no improvement in symptoms.) Additional Instructions: Your history and exam are consistent with an upper respiratory infection. Considering the duration of your symptoms we will start you on an antibiotic for the infection. Start azithromycin 2 tablets today then 1 tablet a day for the next 4 days. Use a saline rinse kit such as Neti Pot or NeilMed at least twice a day to help thin secretions and promote drainage of the sinuses. Use fluticasone (Flonase) nasal spray 2 sprays each nostril once daily. Take Tessalon Perles 1 capsule every 8 hours as needed for cough. Take over the counter acetaminophen (Tylenol) or ibuprofen (Advil, Motrin) according to directions as needed for pain or fever. Use salt water gargles several times a day if you have a sore throat. You may also use Chloraseptic spray or Cepacol lonzenges according to directions which contain a numbing medication and can provide some temporary relief from your sore throat. Follow up with your primary care provide3-5 days if symptoms persist. Seek immediate medical attention in the emergency room if you have fever greater than 100.5 F despite taking acetaminophen or ibuprofen, have chest pain , difficulty breathing, are unable to swallow, or have any worsening of symptoms. - Billing Disposition and Condition Condition: STABLE Disposition: Home - Attestation Statements Provider Attestation: I was available for consult. This patient was seen by the CH[facility]. The patient was not presented to , seen by or examined by ok -Megan Rangel MD
== END 2019-02-12 10:21 | disposition home or self-care (01) ==
LOC: UCCORT 08:48
DX: J06.9 Acute upper respiratory infection, unspecified (principal); R05 Cough; J34.89 Other specified disorders of nose and nasal sinuses; F32.9 Major depressive disorder, single episode, unspecified; Z79.899 Other long term (current) drug therapy; Z91.040 Latex allergy status; Z88.0 Allergy status to penicillin
CPT/HCPCS: 99212; G0463